=== PATIENT | female | born 1995 | race African-American/Black ===

== ENCOUNTER 2017-01-13 18:10 | Emergency (ER) | payer BC ==
[2017-01-13 18:14] VITALS: BP 136/81; PULSE 95; TEMP 98.3; BMI 24.4
--- NOTE | 2017-01-13 18:22 | PDOC ---
History of Present Illness - General Chief Complaint: Urinary Problem Stated Complaint: STD test Time Seen by Provider: 01/13/17 18:17 - History of Present Illness Initial Comments: 01/13/17 18:21 CHIEF COMPLAINT: STD testing/treatment HISTORY OF PRESENT ILLNESS: 21 yo F with no PMH presents to fast track for STD testing. Patient reports that her boyfriend "just came in and got treated and I wanted to too, just in case." Patient reports having negative STD testing in November at her last annual, and she denies any current symptoms, but still requests treatment. PAST MEDICAL HISTORY: Denies past medical history FAMILY HISTORY: Denies SOCIAL HISTORY: Denies tobacco, alcohol, illicit drug use. SURGICAL HISTORY: Denies ALLERGIES: No known drug allergies REVIEW OF SYSTEMS General/Constitutional: Denies fever or chills. Gastrointestinal: Denies nausea, vomiting, diarrhea. Genitourinary: Denies dysuria, frequency, or change in urination. PHYSICAL EXAM General Appearance: Well-appearing, appropriately dressed.. Respiratory/Chest: Lungs CTAB. Cardiovascular: RRR. S1, S2. Integumentary: Appropriate color, dry, warm. No cyanosis, erythema, jaundice or rash Neurologic: vice president tax II-XII intact. Fully oriented, alert. Appropriate mood/affect. Past History - Past Medical History Allergies/Adverse Reactions: Allergies Allergy/AdvReac Type Severity Reaction Status Date / Time No Known Allergies Allergy Verified 01/13/17 18:14 Home Medications: Ambulatory Orders NK [No Known Home Medication] 01/13/17 Other medical history: Patient Denies - Suicide/Smoking/Psychosocial Hx Smoking History: Never smoked Have you smoked in the past 12 months: No Information on smoking cessation initiated: No Hx Alcohol Use: No Drug/Substance Use Hx: No Substance Use Type: None *Physical Exam - Vital Signs Last Vital Signs Temp Pulse Resp BP Pulse Ox 98.3 F 95 H 16 136/81 100 01/13/17 18:12 01/13/17 18:12 01/13/17 18:12 01/13/17 18:12 01/13/17 18:12 Medical Decision Making - Medical Decision Making 01/13/17 18:43 21 yo F with no PMH presents to fast track for STD testing. -UA, UC, CT/GC -Azithromycin 1g, Rocephin *DC/Admit/Observation/Transfer Diagnosis at time of Disposition: Possible exposure to STD - Discharge Dispostion Disposition: HOME Condition at time of disposition: Stable Admit: No - Referrals Referrals: Bong Walker [Primary Care Provider] - - Patient Instructions Printed Discharge Instructions: How to Detect and Treat STDs, Facts About Sexually Transmitted Infections Additional Instructions: You were treated for chlamydia and gonorrhea today. Please call us for your test results in 2-3 days if you do not hear from us. I
[2017-01-13 18:36] LABS: URINE APPEARANCE CLEAR; URINE BILIRUBIN NEGATIVE (NEGATIVE); URINE BLOOD NEGATIVE (NEGATIVE); URINE COLOR STRAW; URINE GLUCOSE (UA) NEGATIVE (NEGATIVE); URINE KETONE NEGATIVE (NEGATIVE); URINE LEUK ESTERASE TRACE (NEGATIVE); URINE NITRITE NEGATIVE (NEGATIVE); URINE PROTEIN NEGATIVE (NEGATIVE); URINE UROBILINOGEN NEGATIVE mg/dL (0.2-1.0)
[2017-01-13] MEDS ORDERED: AZITHROMYCIN 500 MG TABLET PO ONE (18:44)
[2017-01-13] MEDS ORDERED: AZITHROMYCIN 250 MG TABLET ONE (18:50)
[2017-01-13 20:10] LABS: URINE MUCUS RARE; URINE RBC <1 /hpf (0-3); URINE WBC 1 /hpf (3-5)
== END 2017-01-13 19:21 | disposition home or self-care (01) ==
LOC: JERFT 18:10
DX: Z20.2 Contact with and (suspected) exposure to infections with a predominantly sexual mode of transmission (principal)
CPT/HCPCS: 36415; 81003; 81015; 87086; 87491; 87591; 99281-25